=== PATIENT | female | born 1965 | race Caucasian/White ===

== ENCOUNTER 2022-03-31 11:09 | Inpatient (IN) ==
[2022-03-31] MEDS ORDERED: SODIUM CHLORIDE 0.9% 1000ML 1,000 ML IV ONE (11:19)
[2022-03-31] MEDS ORDERED: ONDANSETRON INJ 2 MG/ML 2 ML VIAL IV STA (11:19)
--- NOTE | 2022-03-31 11:32 | Emergency Department Note ---
History of Present Illness General Chief Complaint: Abdominal Pain Stated Complaint: GAS BUBBLE, ABDOMINAL PAIN Time Seen by Provider: 03/31/22 11:19 History of Present Illness Provider Complaint: abdominal pain Onset (ago): 3 week(s) Pain Consistency: intermittent Location: diffuse Radiation: none Severity: moderate Maximum Pain Intensity: 4 Current Pain Intensity: 4 Quality: + stabbing, + aching, + sharp and + dull Relieved By: + nothing Exacerbated By: + nothing Context: no foreign travel, no possible food poisoning, no sick contacts, no recent antibiotic use, no recent surgery/procedure or no recent injury Associated Symptoms: + nausea, + vomiting and + constipation; no diarrhea, no fever, no chills, no dysuria, no hematemesis, no hematochezia, no melena, no hematuria, no anorexia, no syncope, no headache, no neck pain, no back pain, no chest pain, no weakness, no breathing difficulty and no numbness Home Medications Medication Instructions Recorded Confirmed Type losartan 100 mg tablet 100 mg PO DAILY 03/31/22 03/31/22 History Allergies Allergy/AdvReac Type Severity Reaction Status Date / Time No Known Allergies Allergy Verified 03/31/22 12:57 Past Med/Surg History Medical History (Updated 03/31/22 @ 18:06 by López Freire) Colon cancer 2018 - chemo - last dose about a year ago GERD (gastroesophageal reflux disease) Morbid obesity Surgical History History of colostomy History of colostomy reversal History of vascular access device has port for chemo Hx of section Hx of colonoscopy Hx of lumbar discectomy Hx of tubal ligation Social History Smoking Status: Former smoker Second Hand Exposure: No; Hx Alcohol Use: No Preferred Language: Serbian Communication Ability: Effective Tracer Clerk Required: No Beliefs That Will Affect Care: None Current Living Situation: Spouse Feels Safe at Home: Yes Assistive Devices: Glasses Review of Systems A total of 10 systems reviewed and were otherwise negative Physical Exam Vital Signs: Vital Signs - 24 hr 03/31/22 11:14 03/31/22 11:58 03/31/22 12:18 Temperature 36.0 C L Temperature Source Temporal Artery Sc an Pulse Rate 118 H 112 H 85 Pulse Rate [Apical ] 104 H Pulse Rate from Sp O2 Sensor 86 Respiratory Rate 20 19 17 Respiratory Effort / Characteristics Non-Labored Sponta neous Respiratory Depth Normal Blood Pressure 166/80 H Blood Pressure [Ri ght Arm] 130/82 Blood Pressure Justa n 108 Blood Pressure Justa n [Right Arm] 98 Pulse Oximetry 97 97 96 Oxygen Delivery Me thod Room Air Room Air Sepsis Recent Feve r Within 48 Hours No Sepsis New/Unexpla ined Change in Men aviva Status N/A Sepsis Action Take n by Nursing No Action Required 03/31/22 12:30 Temperature Temperature Source Pulse Rate 85 Pulse Rate [Apical ] Pulse Rate from Sp O2 Sensor 86 Respiratory Rate 15 Respiratory Effort / Characteristics Respiratory Depth Blood Pressure Blood Pressure [Ri ght Arm] Blood Pressure Justa n Blood Pressure Justa n [Right Arm] Pulse Oximetry 98 Oxygen Delivery Me thod Sepsis Recent Feve r Within 48 Hours Sepsis New/Unexpla ined Change in Men aviva Status Sepsis Action Take n by Nursing Physical Exam: Physical Exam GENERAL: She is oriented to person, place, and time. She appears well-developed and well-nourished. She does not appear distressed. HENT: Exam performed. -Head: Normocephalic and atraumatic. -Right Ear: External ear normal. No mastoid tenderness. -Left Ear: External ear normal. No mastoid tenderness. -Mouth/Throat: The oropharynx is clear and moist. No trismus in the jaw. No dental abscesses or uvula swelling. No oropharyngeal exudate or tonsillar abscesses. EYES: Conjunctivae and EOM are normal. Pupils are equal, round, and reactive to light. Right eye exhibits no discharge. Left eye exhibits no discharge. No scleral icterus. NECK: Normal range of motion. Neck supple. No JVD present. No spinous process tenderness present. No carotid bruit present. No rigidity. No tracheal deviation and normal range of motion present. No Brudzinski's sign and no Kernig's sign noted. CV: Normal rate, regular rhythm, normal heart sounds and intact distal pulses. There is no peripheral edema. Palpable radial pulses bue. PULM/CHEST: Effort normal and breath sounds normal. No respiratory distress. No stridor. She has no wheezes. She has no rales. -Chest Wall: She exhibits no tenderness. ABD: The abdomen is soft. Bowel sounds are normal. She has no distension. No mass is present. There is diffuse tenderness to palpation of the abdomen. There is no rebound, no guarding, no Valadez's sign and no tenderness at McBurney's point. Rovsig negative MUSC/SKEL: Normal range of motion. There is no peripheral edema, tenderness or deformity. LYMPH: No cervical adenopathy. NEURO: She is alert and oriented to person, place, and time. She has normal strength. No cranial nerve deficit or sensory deficit. Coordination and gait normal. GCS eye subscore is 4. GCS verbal subscore is 5. GCS motor subscore is 6 . Cerebellar tests wnl. SKIN: Skin is warm and dry. She is not diaphoretic. PSYCH: She has a normal mood and affect. Behavior is normal. Judgment and thought content normal. Course Course 1119: The patient was evaluated in room B8. A complete history and physical exam was performed Cardiac monitoring: An order was placed for continuous cardiac monitoring. The monitor shows a rate of 110 with sinus tachycardia rhythm 1455: Vital signs stable. Labs show leukocytosis of 15.6. Imaging shows small bowel obstruction. Discussed the case with Rin Jain PA-C for Dr. Yeison aguirre who agrees to be on consult. Patient will be admitted to the [facility] hospitalist team spoke with Angie who stated to admit to Dr. Lopez. 1504: Dr. Latham general carla came down evaluated the patient recommends transfer as he states that the obstruction is due to a malignant neoplasm and is seems to him like there is metastasis in the eating her actual bowel. He recommends transfer to [facility] where the patient has had her other surgeries done in the past. 1650: Spoke with [facility] colorectal Dr. Guerrero who states that the patient can be transferred under his service. Transfer center at however states that there is a 24 to 48-hour wait to get a bed at [facility] as they are at maximum capacity. We did decide to keep the patient at this facility until a bed becomes available at [place]. I did discuss this with Dr. Latham general surgery who did agree to be on consult while the patient was admitted at this facility but stated he would not plan on operate on the patient. Hospitalist team Dr. Clemons and Angie were notified. Patient was made aware and agreed with plan. Administered Medications Discontinued Medications Sodium Chloride (Nss 1000ml) 1,000 mls @ 999 mls/hr IV .Q1H1M ONE Stop: 03/31/22 12:19 Last Infusion: 03/31/22 12:57 Dose: 0 mls/hr Documented by: [id number] Admin: 03/31/22 11:56 Dose: 999 mls/hr Documented by: [id number] Ioversol (Optiray 320 100ml) 95 ml IV ONCE ONE Stop: 03/31/22 14:04 Last Admin: 03/31/22 14:03 Dose: 95 ml Documented by: [id number] Ondansetron HCl (Ondansetron Inj 2 Mg/Ml 2 Ml Vial) 4 mg IV NOW STA Stop: 03/31/22 11:20 Last Admin: 03/31/22 11:57 Dose: 4 mg Documented by: [id number] Medical Decision Making Laboratory Data Result diagrams: 03/31/22 12:01 03/31/22 12:01 Lab Results 03/31/22 03/31/22 03/31/22 Range/Units 12:01 12:01 14:25 WBC 15.61 H (4.8-10.8) K/uL RBC 4.87 (4.2-5.4) M/uL Hgb 14.6 (12.0-16.0) g/dL Hct 43.9 (37-47) % MCV 90.1 (80-100) fL MCH 30.0 (25-34) pg MCHC 33.3 (32-36) g/dL RDW Std Deviation 42.5 (36.4-46.3) fL RDW Coeff of Hamida 12.8 (11.5-14.5) % Plt Count 256 (130-400) K/uL MPV 10.9 H (7.4-10.4) fL Immature Gran % (Auto) 0.3 % Neut % (Auto) 70.8 % Lymph % (Auto) 21.7 % [place] % (Auto) 5.2 % Eos % (Auto) 1.7 % Baso % (Auto) 0.3 % Neut # (Auto) 11.06 H (1.4-6.5) K/uL Lymph # (Auto) 3.39 (1.2-3.4) K/uL [place] # (Auto) 0.81 H (0.11-0.59) K/uL Eos # (Auto) 0.26 (0-0.5) K/uL Baso # (Auto) 0.04 (0-0.2) K/uL Immature Gran # (Auto) 0.05 H (0.00-0.02) K/uL Sodium 138 (136-145) mmol/L Potassium 3.5 (3.5-5.1) mmol/L Chloride 102 (98-107) mmol/L Carbon Dioxide 29 (21-32) mmol/L Anion Gap 7 (3-11) BUN 9 (6-23) mg/dl Creatinine 1.10 (0.6-1.2) mg/dl Est Cr Clr Drug Dosing 65.8 ml/min Est GFR ( Amer) 64.5 ml/min Est GFR (Non-Af Amer) 55.7 ml/min BUN/Creatinine Ratio 8.2 L (10-20) Glucose 105 H (70-99(Fasting)) mg/dl Calcium 9.3 (8.5-10.1) mg/dl Total Bilirubin 0.6 (0.2-1.0) mg/dl Direct Bilirubin 0.1 (0-0.2) mg/dl AST 22 (13-39) U/L ALT 22 (7-52) U/L Alkaline Phosphatase 110 H (34-104) U/L Total Protein 7.7 (6.0-8.3) gm/dl Albumin 4.2 (3.4-5.0) gm/dl Lipase 4 L (11-82) U/L Urine Color Dark Yellow Urine Appearance Clear (Clear) Urine pH 6.0 (4.5-7.5) Ur Specific [place] 1.034 H (1.000-1.030) Urine Protein Trace H (Negative) Urine Glucose (UA) Negative (Negative) Urine Ketones Trace H (Negative) Urine Blood Negative (Negative) Urine Nitrite Negative (Negative) Urine Bilirubin 1+ H (Negative) Urine Urobilinogen Negative (Negative) Ur Leukocyte Esterase Negative (Negative) Urine WBC (Auto) 1-5 (0-5) /hpf Urine RBC (Auto) 0-4 (0-4) /hpf U Hyaline Cast (Auto) 1-5 (0-5) /lpf U Epithel Cells (Auto) >30 H (0-5) /lpf Urine Bacteria (Auto) 1+ H (Negative) SARS-CoV-2, RNA, NAAT (NEGATIVE) 03/31/22 Range/Units 15:20 WBC (4.8-10.8) K/uL RBC (4.2-5.4) M/uL Hgb (12.0-16.0) g/dL Hct (37-47) % MCV (80-100) fL MCH (25-34) pg MCHC (32-36) g/dL RDW Std Deviation (36.4-46.3) fL RDW Coeff of Hamida (11.5-14.5) % Plt Count (130-400) K/uL MPV (7.4-10.4) fL Immature Gran % (Auto) % Neut % (Auto) % Lymph % (Auto) % [place] % (Auto) % Eos % (Auto) % Baso % (Auto) % Neut # (Auto) (1.4-6.5) K/uL Lymph # (Auto) (1.2-3.4) K/uL [place] # (Auto) (0.11-0.59) K/uL Eos # (Auto) (0-0.5) K/uL Baso # (Auto) (0-0.2) K/uL Immature Gran # (Auto) (0.00-0.02) K/uL Sodium (136-145) mmol/L Potassium (3.5-5.1) mmol/L Chloride (98-107) mmol/L Carbon Dioxide (21-32) mmol/L Anion Gap (3-11) BUN (6-23) mg/dl Creatinine (0.6-1.2) mg/dl Est Cr Clr Drug Dosing ml/min Est GFR ( Amer) ml/min Est GFR (Non-Af Amer) ml/min BUN/Creatinine Ratio (10-20) Glucose (70-99(Fasting)) mg/dl Calcium (8.5-10.1) mg/dl Total Bilirubin (0.2-1.0) mg/dl Direct Bilirubin (0-0.2) mg/dl AST (13-39) U/L ALT (7-52) U/L Alkaline Phosphatase (34-104) U/L Total Protein (6.0-8.3) gm/dl Albumin (3.4-5.0) gm/dl Lipase (11-82) U/L Urine Color Urine Appearance (Clear) Urine pH (4.5-7.5) Ur Specific [place] (1.000-1.030) Urine Protein (Negative) Urine Glucose (UA) (Negative) Urine Ketones (Negative) Urine Blood (Negative) Urine Nitrite (Negative) Urine Bilirubin (Negative) Urine Urobilinogen (Negative) Ur Leukocyte Esterase (Negative) Urine WBC (Auto) (0-5) /hpf Urine RBC (Auto) (0-4) /hpf U Hyaline Cast (Auto) (0-5) /lpf U Epithel Cells (Auto) (0-5) /lpf Urine Bacteria (Auto) (Negative) SARS-CoV-2, RNA, NAAT NEGATIVE (NEGATIVE) Imaging Data Radiologist's Impression: Abdomen/Pelvis CT 03/31/22 11:28 CT OF THE ABDOMEN AND PELVIS WITH CONTRAST CLINICAL HISTORY: Abdominal pain, nausea and vomiting. Colon cancer. Evaluate for small bowel obstruction. COMPARISON STUDY: PET/CT April 19, 2019. TECHNIQUE: Following IV administration of 95 mL of Optiray, axial images of the abdomen and pelvis were obtained from the lung bases to the proximal femurs. Images were reviewed in the axial, sagittal, and coronal planes. IV contrast was administered without complication. Automated exposure control was utilized for the study. A dose lowering technique was utilized adhering to the principles of ALARA. CT DOSE: 1155.74 mGy.cm FINDINGS: Lung bases are unremarkable. No pneumatosis, free air or portal venous gas is present. There are no hepatic lesions. There is hepatic steatosis. Spleen and adrenal glands are unremarkable. 4 mm calculus within the lower pole the left kidney is present. There are no ureteral calculi. There is no hydronephrosis. A sigmoid resection is noted. Colonic diverticulosis is noted without evidence for acute diverticulitis. Multiple loops of moderately dilated fluid-filled small bowel are noted. These measure up to 4.6 cm in caliber. The proximal to mid small bowel is dilated. Distal small bowel is decompressed. Transition point is at a retroperitoneal pathologic partially calcified lymph node that measures 5 x 3 x 2.5 cm. This is shown on axial image 200 [id number]. This node has increased in size since PET/CT of April 19, 2019. This lymph node result s in a small bowel obstruction. This node abuts and could invade the serosa of the small bowel. This appears to represent conglomerate lymphadenopathy which now abuts the abdominal aorta and aortic bifurcation. A few tiny calcifications within the right upper quadrant omentum are noted. These are indeterminate. These were not present on prior PET/CT. There are suspected left hydrosalpinx, unchanged. Suspected fibroids are noted. Postoperative findings of intra- abdominal wall are present. There is trace ascites within the right upper quadrant. IMPRESSION: 1. Findings consistent with a small bowel obstruction due to a pathologic retroperitoneal/paraaortic lymph node which has increased in size since PET/CT of April 19, 2019. This node abuts and may invade the serosa of the small bowel a nd results in a small bowel obstruction. This represents progression of metastatic disease. 2. A few tiny indeterminate peritoneal/omental calcifications. Trace ascites within the right upper quadrant. ACT 112: Negative or not required by law. Electronically signed by: Nir Gonzales M.D. 03/31/2022 2:27 PM [facility] Narrative 1119: The patient was evaluated in room B8. A complete history and physical exam was performed Cardiac monitoring: An order was placed for continuous cardiac monitoring. The monitor shows a rate of 110 with sinus tachycardia rhythm 1455: Vital signs stable. Labs show leukocytosis of 15.6. Imaging shows small bowel obstruction. Discussed the case with Rin Jain PA-C for Dr. Yeison aguirre who agrees to be on consult. [facility] who stated to admit to Dr. Lopez. 1504: Dr. Yeison aguirre came down evaluated the patient recommends transfer as he states that the obstruction is due to a malignant neoplasm and is seems to him like there is metastasis in the eating her actual bowel. He recommends transfer to [facility] where the patient has had her other surgeries done in the past. 1650: Spoke with [facility] colorectal Dr. Guerrero who states that the patient can be transferred under his service. Transfer center at however states that there is a 24 to 48-hour wait to get a bed at [facility] as they are at maximum capacity. We did decide to keep the patient at this facility until a bed becomes available at [place]. I did discuss this with Dr. Yeison aguirre who did agree to be on consult while the patient was admitted at this facility but stated he would not plan on operate on the patient. Hospitalist team Dr. Clemons and Angie were notified. Patient was made aware and agreed with plan. Impression & Plan Small bowel obstruction, Local recurrence of colon cancer Discharge Plan Visit Data Chief Complaint: Abdominal Pain Stated Complaint: GAS BUBBLE, ABDOMINAL PAIN ED Provider: López Freire Discharge Problem: Small bowel obstruction, Local recurrence of colon cancer Patient Disposition: Admitted As Inpatient Forms Stand Alone Forms: [facility] Prescriptions Prescriptions: No Action losartan 100 mg tablet 100 mg PO DAILY RF: 0 Referrals Referrals: Marce Holder DO [Primary Care Provider] -
[2022-03-31 12:22] LABS: Basophils # (auto) 0.04 K/uL (0-0.2); Basophils % (auto) 0.3 %; Eosinophils # (auto) 0.26 K/uL (0-0.5); Eosinophils % (auto) 1.7 %; Hematocrit (blood only) 43.9 % (37-47); Hemoglobin 14.6 g/dL (12.0-16.0); Immature Granulocytes # (auto) 0.05 K/uL (0.00-0.02); Immature Granulocytes % (auto) 0.3 %; Lymphocytes # (auto) 3.39 K/uL (1.2-3.4); Lymphocytes % (auto) 21.7 %; Mean Corpuscular Hgb Conc 33.3 g/dL (32-36); Mean Corpuscular Volume 90.1 fL (80-100); Mean Platelet Volume 10.9 fL (7.4-10.4); Monocytes # (auto) 0.81 K/uL (0.11-0.59); Monocytes % (auto) 5.2 %; Neutrophils # (auto) 11.06 K/uL (1.4-6.5); Neutrophils % (auto) 70.8 %; Platelet Count 256 K/uL (130-400); RDW Coefficient of Variation 12.8 % (11.5-14.5); RDW Standard Deviation 42.5 fL (36.4-46.3); Red Blood Count 4.87 M/uL (4.2-5.4); White Blood Count 15.61 K/uL (4.8-10.8)
[2022-03-31 13:21] LABS: Albumin Level 4.2 gm/dl (3.4-5.0); BUN Creatinine Ratio 8.2 (10-20); Bilirubin,Total 0.6 mg/dl (0.2-1.0); Calcium 9.3 mg/dl (8.5-10.1); Creatinine Clr Calc Pharmacy 65.8 ml/min; Est GFR (African American) 64.5 ml/min; Est GFR (Non-African American) 55.7 ml/min; Total Protein 7.7 gm/dl (6.0-8.3)
[2022-03-31 13:53] LABS: Bilirubin Direct 0.1 mg/dl (0-0.2); Potassium 3.5 mmol/L (3.5-5.1)
[2022-03-31] MEDS ORDERED: OPTIRAY 320 100ml IV ONE (14:03)
--- NOTE | 2022-03-31 14:29 | CT Scan Report ---
CT OF THE ABDOMEN AND PELVIS WITH CONTRAST CLINICAL HISTORY: Abdominal pain, nausea and vomiting. Colon cancer. Evaluate for small bowel obstruc tion. COMPARISON STUDY: PET/CT April 19, 2019. TECHNIQUE: Following IV administration of 95 mL of Optiray, axial images of the abdomen and pelvis we re obtained from the lung bases to the proximal femurs. Images were reviewed in the axial, sagittal, and coronal planes. IV contrast was administered without complication. Automated exposure control wa s utilized for the study. A dose lowering technique was utilized adhering to the principles of ALARA . CT DOSE: 1155.74 mGy.cm FINDINGS: Lung bases are unremarkable. No pneumatosis, free air or portal venous gas is present. Ther e are no hepatic lesions. There is hepatic steatosis. Spleen and adrenal glands are unremarkable. 4 m m calculus within the lower pole the left kidney is present. There are no ureteral calculi. There is no hydronephrosis. A sigmoid resection is noted. Colonic diverticulosis is noted without evidence for acute diverticulitis. Multiple loops of moderately dilated fluid-filled small bowel are noted. These measure up to 4.6 cm in caliber. The proximal to mid small bowel is dilated. Distal small bowel is d ecompressed. Transition point is at a retroperitoneal pathologic partially calcified lymph node that measures 5 x 3 x 2.5 cm. This is shown on axial image [id number]. This node has increased in size since PET/CT of April 19, 2019. This lymph node results in a small bowel obstruction. This node abuts and c ould invade the serosa of the small bowel. This appears to represent conglomerate lymphadenopathy whi ch now abuts the abdominal aorta and aortic bifurcation. A few tiny calcifications within the right u pper quadrant omentum are noted. These are indeterminate. These were not present on prior PET/CT. The re are suspected left hydrosalpinx, unchanged. Suspected fibroids are noted. Postoperative findings o f intra-abdominal wall are present. There is trace ascites within the right upper quadrant. IMPRESSION: 1. Findings consistent with a small bowel obstruction due to a pathologic retroperitoneal/paraaortic lymph node which has increased in size since PET/CT of April 19, 2019. This node abuts and may invade the serosa of the small bowel and results in a small bowel obstruction. This represents progression o f metastatic disease. 2. A few tiny indeterminate peritoneal/omental calcifications. Trace ascites within the right upper q uadrant. ACT 112: Negative or not required by law. Electronically signed by: Nir Gonzales M.D. 03/31/2022 2:27 PM
[2022-03-31 14:50] LABS: Appearance Urine Clear (Clear); Bacteria Urine Automated 1+ (Negative); Blood Urine Negative (Negative); Color Urine Dark Yellow; Epithelial Cell Urine Auto >30 /lpf (0-5); Glucose Urine UA Negative (Negative); Ketones Urine Trace (Negative); Leukocyte Esterase Urine Negative (Negative); Nitrite Urine Negative (Negative); Protein Urine Trace (Negative); RBC Urine Automated 0-4 /hpf (0-4); Specific Gravity Urine 1.034 (1.000-1.030); Urobilinogen Urine Negative (Negative)
[2022-03-31 14:54] LABS: Bilirubin Urine 1+ (Negative)
--- NOTE | 2022-03-31 15:02 | History & Physical Report ---
Date of Service March 31, 2022 Assessment & Plan (1) Small bowel obstruction: (2) Carcinoma of sigmoid colon: Plan: 57-year-old female with PMHx of colon cancer with mets originally diagnosed in August 2016, s/p sigmoid colon resection in September 2016 revealing thiago nocarcinoma, 8/16 lymph nodes were positive for metastatic carcinoma, the tumor penetrated through the visceral peritoneum and the final pathologic stage was [id number]. Complete staging revealed several pulmonary nodules, multiple prominent retroperitoneal lymph nodes and a left common iliac lymph node. Bone scan was negative in October 2016 for metastatic disease. Patient was seen by Dr. Allie Unger and then Dr. Bermudez from medical oncology and received 12 cycles of FOLFOX from 07/22/2018 to completing therapy on 05/20/2019. In October 2018 Vectibix was added. Restaging scans on 06/09/2017 showed stable nonspecific pulmonary nodules in the lung no other evidence of recurrent or metastatic disease. She had been followed by radiation oncology after PET/CT scan on 04/19/2019 revealed resolution of FDG avidity of retroperitoneal lymph node, she completed radiation therapy on 08/03/2019. Past abdominal surgical hx includes 4 abdominal surgeries: , ligation oviducts - unknown date 09/01/2016 with exploratory laparotomy of the abdomen due to diverticulosis, enterostomy creation 12/10/2017 with closure of enterostomy with large intestine resection and anastomosis 05/27/2021 mesh implant with abdominal hernia repair - Admit to med surg with tele - CT abdomen reviewed showin. Findings consistent with a small bowel obstruction due to a pathologic retroperitoneal/paraaortic lymph node which has increased in size since PET/CT of April 19, 2019. This node abuts and may invade the serosa of the small bowel and results in a small bowel obstruction. This represents progression of metastatic disease. 2. A few tiny indeterminate peritoneal/omental calcifications. Trace ascites within the right upper quadrant. - NGT being placed in the ER, strict NPO - NSS x 1 L at 80 ml/hr for maintenance fluids, afterwards can switch to D5+1/2 NSS if still admitted in this facility - WBC elevated at 15.61, neuts 11.06 - Alk phos is slightly elevated at 110 - Check cbc, cmp, mag, phos, INR with am labs - Consult oncology if still admitted here tomorrow, follows with Dr. Jaimes as an outpatient - Consulted general surgery - Dr. Latham - Anticipating transfer to [facility] soon for possible surgical intervention- pt has been accepted there however there aren't any beds available at this point (3) Morbid obesity: Plan: - BMI of 38.8, diet and exercise to be encouraged (4) GERD (gastroesophageal reflux disease): Plan: - Taking peptobismol at home, stopped using famotidine and protonix many months ago as she didn't see any improvement in her symptoms. DVT ppx: - teds, scds, lovenox subq - will need to hold tomorrow morning if plans for surgical procedure develop overnight CODE: Full code Dispo: From home, likely to remain in the hospital x 1-2 days. Awaiting bed at [facility] for transfer History of Present Illness Chief Complaint: Abdominal pain Primary Care Provider: Marce Holder, This is a 57-year-old female with PMHx of colon cancer with mets originally diagnosed in August 2016, s/p sigmoid colon resection in September 2016 revealing adenocarcinoma, 8/ lymph nodes were positive for metastatic carcinoma, the tumor penetrated through the visceral peritoneum and the final pathologic stage was [id number]. Complete staging revealed several pulmonary no dules, multiple prominent retroperitoneal lymph nodes and a left common iliac lymph node. Bone scan was negative in October 2016 for metastatic disease. Patient was seen by Dr. Allie Unger and then Dr. Bermudez from medical oncology and received 12 cycles of FOLFOX from 07/22/2018 to completing therapy on 05/20/2019. In October 2018 Vectibix was added. Restaging scans on 06/09/2017 showed stable nonspecific pulmonary nodules in the lung no other evidence of recurrent or metastatic disease. She had been followed by radiation oncology after PET/CT scan on 04/19/2019 revealed resolution of FDG avidity of retroperitoneal lymph node, she completed radiation therapy on 08/03/2019. She Past abdominal surgical hx includes 4 abdominal surgeries: , ligation oviducts - unknown date 09/01/2016 with exploratory laparotomy of the abdomen due to diverticulosis, enterostomy creation 12/10/2017 with closure of enterostomy with large intestine resection and anastomosis 05/27/2021 mesh implant with abdominal hernia repair Other past medical history includes: basal cell carcinoma L lower eyelid, rosacea, hx of tobacco use with 1 ppd x 20 years, quit in 2003. Today the patient presents with abdominal pain to the ER. 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 She notes that abdominal pain has been ongoing on and off x3 weeks. She is unable to pinpoint exact location of pain as she states that it moves throughout her abdomen, however currently feels it in the epigastric region above where mesh implant was placed last summer. Alleviating factors for her abdominal pain include movement and lying down, cannot pinpoint an aggravating factor. Intermittently,she has been unable to tolerate p.o. intake with nausea and vomiting, most recently was vomiting 2 days ago. She denies coffee-ground emesis or hematemesis and reports that the food is always partially digested. She has been using Pepto-Bismol multiple times daily and started a Gas-X tablet yesterday to help with bloating. Bowel movements are small, 3-5 times daily is a regular occurrence, her last bowel movement was 2 days ago, she is passing flatus today. Since having bowel surgery, her bowel habits have been unpredictable where she has several small bowel movements for days in a row and then has what she calls a " bowel clean out" without prompting it with any type of medication or enema. She does not take any stool softeners or other laxatives routinely. Patient is unable to tell me if she has been losing weight as she does not weigh herself daily. She denies any night sweats, fevers, chills or swelling of lymph nodes under her armpits or her groin that she is aware of. She lives at home with her who is aware that she is here. Only medication that the patient takes routinely is her losartan 100 mg daily. She is not on any pain medication that would possibly slow her bowels. [facility] was called for transfer from the ER, however due to no beds being available for the next 48 hours, we plan to admit the patient here. [facility] is agreeable to do a consultation. Allergies Allergy/AdvReac Type Severity Reaction Status Date / Time No Known Allergies Allergy Verified 03/31/22 12:57 Home Medications Medication Instructions Recorded Confirmed Type losartan 100 mg tablet 100 mg PO DAILY 03/31/22 03/31/22 History Past Med/Surg History Medical History (Updated 03/31/22 @ 18:06 by López Freire) Colon cancer 2018 - chemo - last dose about a year ago GERD (gastroesophageal reflux disease) Morbid obesity Surgical History History of colostomy History of colostomy reversal History of vascular access device has port for chemo Hx of section Hx of colonoscopy Hx of lumbar discectomy Hx of tubal ligation Social History Smoking Status: Former smoker Second Hand Exposure: No; Hx Alcohol Use: No Preferred Language: Gibraltarian Communication Ability: Effective Reel Slitter Required: No Beliefs That Will Affect Care: None Current Living Situation: Spouse Feels Safe at Home: Yes Assistive Devices: Glasses Review of Systems Review of Systems: Constitutional: No fever, sweats or chills Eyes: No diplopia, no worsening or blurred vision ENT: normal hearing, no trouble swallowing Respiratory: No cough, sputum, dyspnea at rest or on exertion Cardiovascular: No chest pain, tightness or palpitations Abdomen: As per HPI, currently minimal pain, no nausea, no vomiting, no diarrhea or constipation. Last BM 2 days ago, + flatus Musculoskeletal: No joint pain, calf pain, swelling Neurologic: No weakness, numbness/tingling, or balance problems Psychiatric: No anxiety or depression Skin: No rash or itch Physical Exam Physical Exam: General: awake, alert, no apparent distress, + obese with BMI of 38.8 Head: Normocephalic, atraumatic ENT: PERRL, EOMI, no pharyngeal exudate, mucous membranes slightly dry Chest: Clear to auscultation, on room air, no adventitious breath sounds Cardiac: Regular rate and rhythm, no murmur, no JVD, normal peripheral pulses, good capillary refill Abdominal: NABS x 4 quadrants, hyperactive, no tinkling, soft, + Distended, nontender to palpation, no rebound or guarding Extremities: Normal inspection, no peripheral edema or erythema, calfs nontender to palpation Psych: Normal mood and affect Neuro: AAO x 3, strength intact bilaterally and rated 5/5, no motor deficits, speech is clear, no peripheral sensory deficits Results & Data Results & Data ([facility]) Vital Signs (Past 12 Hours) Vital Signs Temp Pulse Pulse Resp BP BP Pulse Ox 03/31/22 12:30 85 15 98 03/31/22 12:18 85 17 96 03/31/22 11:58 112 H 104 H 19 130/82 97 03/31/22 11:14 36.0 C L 118 H 20 166/80 H 97 Laboratory Results 03/31/22 14:25 Urine Culture - Pending Urine,Clean Catch 03/31/22 03/31/22 03/31/22 15:20 14:25 12:01 WBC RBC Hgb Hct MCV MCH MCHC RDW Std Deviation RDW Coeff of Hamida Plt Count MPV Immature Gran % (Auto) Neut % (Auto) Lymph % (Auto) Allen % (Auto) Eos % (Auto) Baso % (Auto) Neut # (Auto) Lymph # (Auto) Allen # (Auto) Eos # (Auto) Baso # (Auto) Immature Gran # (Auto) Sodium 138 Potassium 3.5 Chloride 102 Carbon Dioxide 29 Anion Gap 7 BUN 9 Creatinine 1.10 Est Cr Clr Drug Dosing 65.8 Est GFR ( Amer) 64.5 Est GFR (Non-Af Amer) 55.7 BUN/Creatinine Ratio 8.2 L Glucose 105 H Calcium 9.3 Total Bilirubin 0.6 Direct Bilirubin 0.1 AST 22 ALT 22 Alkaline Phosphatase 110 H Total Protein 7.7 Albumin 4.2 Lipase 4 L Urine Color Dark Yellow Urine Appearance Clear Urine pH 6.0 Ur Specific [place] 1.034 H Urine Protein Trace H Urine Glucose (UA) Negative Urine Ketones Trace H Urine Blood Negative Urine Nitrite Negative Urine Bilirubin 1+ H Urine Urobilinogen Negative Ur Leukocyte Esterase Negative Urine WBC (Auto) 1-5 Urine RBC (Auto) 0-4 U Hyaline Cast (Auto) 1-5 U Epithel Cells (Auto) >30 H Urine Bacteria (Auto) 1+ H SARS-CoV-2, RNA, NAAT NEGATIVE 03/31/22 12:01 WBC 15.61 H RBC 4.87 Hgb 14.6 Hct 43.9 MCV 90.1 MCH 30.0 MCHC 33.3 RDW Std Deviation 42.5 RDW Coeff of [place] 12.8 Plt Count 256 MPV 10.9 H Immature Gran % (Auto) 0.3 Neut % (Auto) 70.8 Lymph % (Auto) 21.7 Allen % (Auto) 5.2 Eos % (Auto) 1.7 Baso % (Auto) 0.3 Neut # (Auto) 11.06 H Lymph # (Auto) 3.39 Allen # (Auto) 0.81 H Eos # (Auto) 0.26 Baso # (Auto) 0.04 Immature Gran # (Auto) 0.05 H Sodium Potassium Chloride Carbon Dioxide Anion Gap BUN Creatinine Est Cr Clr Drug Dosing Est GFR ( Amer) Est GFR (Non-Af Amer) BUN/Creatinine Ratio Glucose Calcium Total Bilirubin Direct Bilirubin AST ALT Alkaline Phosphatase Total Protein Albumin Lipase Urine Color Urine Appearance Urine pH Ur Specific [place] Urine Protein Urine Glucose (UA) Urine Ketones Urine Blood Urine Nitrite Urine Bilirubin Urine Urobilinogen Ur Leukocyte Esterase Urine WBC (Auto) Urine RBC (Auto) U Hyaline Cast (Auto) U Epithel Cells (Auto) Urine Bacteria (Auto) SARS-CoV-2, RNA, NAAT Diagnostic Findings Abdomen/Pelvis CT 03/31/22 11:28 CT OF THE ABDOMEN AND PELVIS WITH CONTRAST CLINICAL HISTORY: Abdominal pain, nausea and vomiting. Colon cancer. Evaluate for small bowel obstruction. COMPARISON STUDY: PET/CT April 19, 2019. TECHNIQUE: Following IV administration of 95 mL of Optiray, axial images of the abdomen and pelvis were obtained from the lung bases to the proximal femurs. Images were reviewed in the axial, sagittal, and coronal planes. IV contrast was administered without complication. Automated exposure control was utilized for the study. A dose lowering technique was utilized adhering to the principles of ALARA. CT DOSE: 1155.74 mGy.cm FINDINGS: Lung bases are unremarkable. No pneumatosis, free air or portal venous gas is present. There are no hepatic lesions. There is hepatic steatosis. Spleen and adrenal glands are unremarkable. 4 mm calculus within the lower pole the left kidney is present. There are no ureteral calculi. There is no hydronephrosis. A sigmoid resection is noted. Colonic diverticulosis is noted without evidence for acute diverticulitis. Multiple loops of moderately dilated fluid-filled small bowel are noted. These measure up to 4.6 cm in caliber. The proximal to mid small bowel is dilated. Distal small bowel is decompressed. Transition point is at a retroperitoneal pathologic partially calcified lymph node that measures 5 x 3 x 2.5 cm. This is shown on axial image 200 2355. This node has increased in size since PET/CT of April 19, 2019. This lymph node results in a small bowel obstruction. This node abuts and could invade the serosa of the small bowel. This appears to represent conglomerate lymphadenopathy which now abuts the abdominal aorta and aortic bifurcation. A few tiny calcifications within the right upper quadrant omentum are noted. These are indeterminate. These were not present on prior PET/CT. There are suspected left hydrosalpinx, unchanged. Suspected fibroids are noted. Postoperative findings of intra-abdominal wall are present. There is trace ascites within the right upper quadrant. IMPRESSION: 1. Findings consistent with a small bowel obstruction due to a pathologic retroperitoneal/paraaortic lymph node which has increased in size since PET/CT of April 19, 2019. This node abuts and may invade the serosa of the small bowel and results in a small bowel obstruction. This represents progression of metastatic disease. 2. A few tiny indeterminate peritoneal/omental calcifications. Trace ascites within the right upper quadrant. ACT 112: Negative or not required by law. Electronically signed by: Nir Gonzales M.D. 03/31/2022 2:27 PM Code Status & VTE Plan Code Status Full code -discussed with the patient at bedside Supervising Physician Co-Signing Physician Notes Pt is a 57 y/o F with hx of metastatic Adenocarcinoma of the colon s/p resection & chemoradiation, hx of bowel perforation and multiple abd surgeries, anemia, GERD, HTN admitted for SBO with increase in size of the retroperitoneal/paraaortic lymph nodes. PE: NG tube in place, well developed Lungs: CTA, no wheezing or crackles Cardiac: normal S1/S2, no murmur Abd: ND, soft, increase BS diffusely, mild discomfort to palpation diffusely Psych: normal affect A/P: SBO with increase in size of the retroperitoneal/paraaortic lymph nodes: -s/p NG tube -VSS - NPO: due to NG tube placement will continue NS 80 cc/hr ---- will consider changing to D5 tomorrow -surgery consulted: recommended transfer to [facility] ---- waiting for bed -pt has chronic elevate wbc - will hold losartan Other chronic conditions: plan as above Agree with a/p by Alla Cormier PA-C
[2022-03-31] MEDS ORDERED: ACETAMINOPHEN 325 MG TAB PO PRN (19:19)
[2022-03-31] MEDS ORDERED: SODIUM CHLORIDE 0.9% 500 ML IV SCH (19:19)
[2022-03-31] MEDS ORDERED: ONDANSETRON INJ 2 MG/ML 2 ML VIAL IV PRN (19:19)
[2022-03-31] MEDS ORDERED: diphenhydrAMINE 50 MG/ML VIAL IV ONE (22:35)
[2022-04-01 06:13] LABS: Basophils # (auto) 0.03 K/uL (0-0.2); Basophils % (auto) 0.3 %; Eosinophils # (auto) 0.32 K/uL (0-0.5); Eosinophils % (auto) 3.4 %; Hematocrit (blood only) 40.8 % (37-47); Hemoglobin 13.2 g/dL (12.0-16.0); Immature Granulocytes # (auto) 0.02 K/uL (0.00-0.02); Immature Granulocytes % (auto) 0.2 %; Lymphocytes # (auto) 2.92 K/uL (1.2-3.4); Lymphocytes % (auto) 31.3 %; Mean Corpuscular Hemoglobin 30.2 pg (25-34); Mean Corpuscular Hgb Conc 32.4 g/dL (32-36); Mean Corpuscular Volume 93.4 fL (80-100); Mean Platelet Volume 11.1 fL (7.4-10.4); Monocytes # (auto) 0.54 K/uL (0.11-0.59); Monocytes % (auto) 5.8 %; Platelet Count 214 K/uL (130-400); RDW Coefficient of Variation 13.1 % (11.5-14.5); RDW Standard Deviation 44.5 fL (36.4-46.3); Red Blood Count 4.37 M/uL (4.2-5.4); White Blood Count 9.33 K/uL (4.8-10.8)
[2022-04-01 06:22] LABS: Prothrombin Time 11.1 Seconds (9.0-12.0)
[2022-04-01 06:39] LABS: Albumin Globulin Ratio 1.3 (0.9-2); Albumin Level 3.6 gm/dl (3.4-5.0); BUN Creatinine Ratio 8.1 (10-20); Bilirubin Direct 0.2 mg/dl (0-0.2); Bilirubin,Total 0.5 mg/dl (0.2-1.0); Calcium 8.6 mg/dl (8.5-10.1); Creatinine Clr Calc Pharmacy 73.4 ml/min; Est GFR (African American) 73.3 ml/min; Est GFR (Non-African American) 63.3 ml/min; Globulin 2.8 gm/dl (2.5-4.0); Magnesium 1.9 mg/dl (1.7-2.4); Phosphorus 3.8 mg/dl (2.5-4.9); Potassium 3.2 mmol/L (3.5-5.1); Total Protein 6.4 gm/dl (6.0-8.3)
--- NOTE | 2022-04-01 10:03 | Surgery Consultation ---
Date of Consultation April 01, 2022 Assessment & Plan (1) Small bowel obstruction: (2) Carcinoma of sigmoid colon: 57 year-old female with history of metastatic colon cancer s/p sigmoid colon resection, colostomy with reversal, chemotherapy and radiation therapy and large midline incisional hernia repair with large mesh at [facility] about 1 year ago who presented to ED with increasing abdominal pain, nausea and vomiting. CT scan showing small bowel obstruction likely due to a pathological retro peritoneal/paraaortic lymph node which abuts and may invade the serosa of the small bowel resulting in the obstruction. Awaiting transfer to [facility], no beds currently available. Plan: Will plan to clamp NGT as patient is passing gas, no abdominal pain and minimal output continue NPO for bowel rest IV fluids pain management as needed Continue current medical mangement Dr. Latham has seen and examined pt, see addendum for further recommendations/plan. Supervising Physician Co-Signing Physician Notes I have seen and examined the patient and agree with the assessment and plan. In brief she has a history of metastatic colon cancer status post colon resection colostomy with reversal, chemoradiation, as well as a large hernia repair. She has small bowel obstruction. We have placed an NG tube. We have attempted transfer to [facility] where she had her other surgeries, however they do not have a bed available. We will admit her to the hospital and place her in observation. If she worsens or fails to improve she will need to be transferred to a tertiary care center for surgery. Continue to follow. History of Present Illness Reason for Consultation: SBO Requesting Physician: Angie Cormier PA-C Attending Physician: Aashish Gomes MD History of Present Illness 57-year-old female with PMHx of colon cancer with mets originally diagnosed in August 2016, s/p sigmoid colon resection in September 2016 revealing adenocarcinoma, 06/16 lymph nodes were positive for metastatic carcinoma, the tumor penetrated through the visceral peritoneum and the final pathologic stage was [id number]. Complete staging revealed several pulmonary nodules, multiple prominent retroperitoneal lymph nodes and a left common iliac lymph node. Bone scan was negative in October 2016 for metastatic disease. Patient was seen by Dr. Allie Unger and then Dr. Baldwin from medical oncology and received 12 cycl es of FOLFOX from 07/22/2018 to completing therapy on 05/20/2019. In October 2018 Vectibix was added. Restaging scans on 06/09/2017 showed stable nonspecific pulmonary nodules in the lung no other evidence of recurrent or metastatic disease. She had been followed by radiation oncology after PET/CT scan on 04/19/2019 revealed resolution of FDG avidity of retroperitoneal lymph node, she completed radiation therapy on 08/03/2019. She presented to ED yesterday due to increasing abdominal pain that became severe with associated nausea and vomiting. States the pain has been present for about 3 weeks but off and on prior to this. States last bowel movement was on Wednesday but is not regular with bowel movement everyday. Passing gas. She states she is feeling better, still passing gas. Uncomfortable with NGT. No abdominal pain. Awaiting bed at [facility] . Allergies Allergy/AdvReac Type Severity Reaction Status Date / Time No Known Allergies Allergy Verified 03/31/22 12:57 Home Medications Medication Instructions Recorded Confirmed Type losartan 100 mg tablet 100 mg PO DAILY 03/31/22 03/31/22 History Patient History Medical History (Updated 03/31/22 @ 18:06 by López Freire) Colon cancer 2018 - chemo - last dose about a year ago GERD (gastroesophageal reflux disease) Morbid obesity Surgical History History of colostomy History of colostomy reversal History of vascular access device has port for chemo Hx of section Hx of colonoscopy Hx of lumbar discectomy Hx of tubal ligation Social History Smoking Status: Former smoker Second Hand Exposure: No; Do You Dip or Chew Tobacco: No; Hx Alcohol Use: No Hx Substance Use: No Preferred Language: Prydeinig Communication Ability: Effective Manager Of Radiology Required: No Beliefs That Will Affect Care: None Current Living Situation: Spouse Current Living Situation Comment: home with Other Information That Helps Us Care for You: No Feels Safe at Home: Yes Safety Concerns: Feels Safe At This Time Assistive Devices: None Physical Exam Constitutional: WD/WN, vitals as above + obese; no acute distress and not ill appearing Neck: normal visual inspection and trachea midline Respiratory: normal respiratory effort, lungs clear to auscultation Cardiovascular: RRR, no murmur, no edema Gastrointestinal (Abdomen): Inspection/Auscultation: abdomen normal to inspection and + abdominal surgical scar (midline laparotomy scar and LLQ scar from prior colostomy); abdomen not distended Percussion/Palpation: abdomen soft; abdomen nontender, no guarding and abdomen not rigid NGT with minimal output in canister Skin: no rashes, warm and dry Psychiatric: A+Ox3, euthymic affect Results & Data ([facility]) Vital Signs (Past 12 Hours) Vital Signs Temp Pulse Pulse Pulse Resp BP Pulse Ox 04/01/22 07:55 36.5 C 85 18 113/74 93 04/01/22 07:30 75 04/01/22 03:16 37.1 C 79 18 123/74 93 03/31/22 23:00 85 03/31/22 22:49 37.0 C 72 18 119/74 93 Laboratory Results 04/01/22 04/01/22 04/01/22 Range/Units 05:29 05:29 05:29 WBC 9.33 (4.8-10.8) K/uL RBC 4.37 (4.2-5.4) M/uL Hgb 13.2 (12.0-16.0) g/dL Hct 40.8 (37-47) % MCV 93.4 (80-100) fL MCH 30.2 (25-34) pg MCHC 32.4 (32-36) g/dL RDW Std Deviation 44.5 (36.4-46.3) fL RDW Coeff of Hamida 13.1 (11.5-14.5) % Plt Count 214 (130-400) K/uL MPV 11.1 H (7.4-10.4) fL Immature Gran % (Auto) 0.2 % Neut % (Auto) 59.0 % Lymph % (Auto) 31.3 % Hemphill % (Auto) 5.8 % Eos % (Auto) 3.4 % Baso % (Auto) 0.3 % Neut # (Auto) 5.50 (1.4-6.5) K/uL Lymph # (Auto) 2.92 (1.2-3.4) K/uL Hemphill # (Auto) 0.54 (0.11-0.59) K/uL Eos # (Auto) 0.32 (0-0.5) K/uL Baso # (Auto) 0.03 (0-0.2) K/uL Immature Gran # (Auto) 0.02 (0.00-0.02) K/uL PT 11.1 (9.0-12.0) Seconds INR 1.0 (0.9-1.1) Sodium 141 (136-145) mmol/L Potassium 3.2 L (3.5-5.1) mmol/L Chloride 107 (98-107) mmol/L Carbon Dioxide 27 (21-32) mmol/L Anion Gap 7 (3-11) BUN 8 (6-23) mg/dl Creatinine 0.99 (0.6-1.2) mg/dl Est Cr Clr Drug Dosing 73.4 ml/min Est GFR ( Amer) 73.3 ml/min Est GFR (Non-Af Amer) 63.3 ml/min BUN/Creatinine Ratio 8.1 L (10-20) Glucose 87 (70-99(Fasting)) mg/dl Calcium 8.6 (8.5-10.1) mg/dl Phosphorus 3.8 (2.5-4.9) mg/dl Magnesium 1.9 (1.7-2.4) mg/dl Total Bilirubin 0.5 (0.2-1.0) mg/dl Direct Bilirubin 0.2 (0-0.2) mg/dl AST 18 (13-39) U/L ALT 18 (7-52) U/L Alkaline Phosphatase 93 (34-104) U/L Total Protein 6.4 (6.0-8.3) gm/dl Albumin 3.6 (3.4-5.0) gm/dl Globulin 2.8 (2.5-4.0) gm/dl Albumin/Globulin Ratio 1.3 (0.9-2) Lipase (11-82) U/L Urine Color Urine Appearance (Clear) Urine pH (4.5-7.5) Ur Specific [place] (1.000-1.030) Urine Protein (Negative) Urine Glucose (UA) (Negative) Urine Ketones (Negative) Urine Blood (Negative) Urine Nitrite (Negative) Urine Bilirubin (Negative) Urine Urobilinogen (Negative) Ur Leukocyte Esterase (Negative) Urine WBC (Auto) (0-5) /hpf Urine RBC (Auto) (0-4) /hpf U Hyaline Cast (Auto) (0-5) /lpf U Epithel Cells (Auto) (0-5) /lpf Urine Bacteria (Auto) (Negative) SARS-CoV-2, RNA, NAAT (NEGATIVE) 03/31/22 03/31/22 03/31/22 Range/Units 15:20 14:25 12:01 WBC (4.8-10.8) K/uL RBC (4.2-5.4) M/uL Hgb (12.0-16.0) g/dL Hct (37-47) % MCV (80-100) fL MCH (25-34) pg MCHC (32-36) g/dL RDW Std Deviation (36.4-46.3) fL RDW Coeff of Hamida (11.5-14.5) % Plt Count (130-400) K/uL MPV (7.4-10.4) fL Immature Gran % (Auto) % Neut % (Auto) % Lymph % (Auto) % Hemphill % (Auto) % Eos % (Auto) % Baso % (Auto) % Neut # (Auto) (1.4-6.5) K/uL Lymph # (Auto) (1.2-3.4) K/uL Hemphill # (Auto) (0.11-0.59) K/uL Eos # (Auto) (0-0.5) K/uL Baso # (Auto) (0-0.2) K/uL Immature Gran # (Auto) (0.00-0.02) K/uL PT (9.0-12.0) Seconds INR (0.9-1.1) Sodium 138 (136-145) mmol/L Potassium 3.5 (3.5-5.1) mmol/L Chloride 102 (98-107) mmol/L Carbon Dioxide 29 (21-32) mmol/L Anion Gap 7 (3-11) BUN 9 (6-23) mg/dl Creatinine 1.10 (0.6-1.2) mg/dl Est Cr Clr Drug Dosing 65.8 ml/min Est GFR ( Amer) 64.5 ml/min Est GFR (Non-Af Amer) 55.7 ml/min BUN/Creatinine Ratio 8.2 L (10-20) Glucose 105 H (70-99(Fasting)) mg/dl Calcium 9.3 (8.5-10.1) mg/dl Phosphorus (2.5-4.9) mg/dl Magnesium (1.7-2.4) mg/dl Total Bilirubin 0.6 (0.2-1.0) mg/dl Direct Bilirubin 0.1 (0-0.2) mg/dl AST 22 (13-39) U/L ALT 22 (7-52) U/L Alkaline Phosphatase 110 H (34-104) U/L Total Protein 7.7 (6.0-8.3) gm/dl Albumin 4.2 (3.4-5.0) gm/dl Globulin (2.5-4.0) gm/dl Albumin/Globulin Ratio (0.9-2) Lipase 4 L (11-82) U/L Urine Color Dark Yellow Urine Appearance Clear (Clear) Urine pH 6.0 (4.5-7.5) Ur Specific [place] 1.034 H (1.000-1.030) Urine Protein Trace H (Negative) Urine Glucose (UA) Negative (Negative) Urine Ketones Trace H (Negative) Urine Blood Negative (Negative) Urine Nitrite Negative (Negative) Urine Bilirubin 1+ H (Negative) Urine Urobilinogen Negative (Negative) Ur Leukocyte Esterase Negative (Negative) Urine WBC (Auto) 1-5 (0-5) /hpf Urine RBC (Auto) 0-4 (0-4) /hpf U Hyaline Cast (Auto) 1-5 (0-5) /lpf U Epithel Cells (Auto) >30 H (0-5) /lpf Urine Bacteria (Auto) 1+ H (Negative) SARS-CoV-2, RNA, NAAT NEGATIVE (NEGATIVE) 03/31/22 Range/Units 12:01 WBC 15.61 H (4.8-10.8) K/uL RBC 4.87 (4.2-5.4) M/uL Hgb 14.6 (12.0-16.0) g/dL Hct 43.9 (37-47) % MCV 90.1 (80-100) fL MCH 30.0 (25-34) pg MCHC 33.3 (32-36) g/dL RDW Std Deviation 42.5 (36.4-46.3) fL RDW Coeff of Hamida 12.8 (11.5-14.5) % Plt Count 256 (130-400) K/uL MPV 10.9 H (7.4-10.4) fL Immature Gran % (Auto) 0.3 % Neut % (Auto) 70.8 % Lymph % (Auto) 21.7 % Hemphill % (Auto) 5.2 % Eos % (Auto) 1.7 % Baso % (Auto) 0.3 % Neut # (Auto) 11.06 H (1.4-6.5) K/uL Lymph # (Auto) 3.39 (1.2-3.4) K/uL Hemphill # (Auto) 0.81 H (0.11-0.59) K/uL Eos # (Auto) 0.26 (0-0.5) K/uL Baso # (Auto) 0.04 (0-0.2) K/uL Immature Gran # (Auto) 0.05 H (0.00-0.02) K/uL PT (9.0-12.0) Seconds INR (0.9-1.1) Sodium (136-145) mmol/L Potassium (3.5-5.1) mmol/L Chloride (98-107) mmol/L Carbon Dioxide (21-32) mmol/L Anion Gap (3-11) BUN (6-23) mg/dl Creatinine (0.6-1.2) mg/dl Est Cr Clr Drug Dosing ml/min Est GFR ( Amer) ml/min Est GFR (Non-Af Amer) ml/min BUN/Creatinine Ratio (10-20) Glucose (70-99(Fasting)) mg/dl Calcium (8.5-10.1) mg/dl Phosphorus (2.5-4.9) mg/dl Magnesium (1.7-2.4) mg/dl Total Bilirubin (0.2-1.0) mg/dl Direct Bilirubin (0-0.2) mg/dl AST (13-39) U/L ALT (7-52) U/L Alkaline Phosphatase (34-104) U/L Total Protein (6.0-8.3) gm/dl Albumin (3.4-5.0) gm/dl Globulin (2.5-4.0) gm/dl Albumin/Globulin Ratio (0.9-2) Lipase (11-82) U/L Urine Color Urine Appearance (Clear) Urine pH (4.5-7.5) Ur Specific [place] (1.000-1.030) Urine Protein (Negative) Urine Glucose (UA) (Negative) Urine Ketones (Negative) Urine Blood (Negative) Urine Nitrite (Negative) Urine Bilirubin (Negative) Urine Urobilinogen (Negative) Ur Leukocyte Esterase (Negative) Urine WBC (Auto) (0-5) /hpf Urine RBC (Auto) (0-4) /hpf U Hyaline Cast (Auto) (0-5) /lpf U Epithel Cells (Auto) (0-5) /lpf Urine Bacteria (Auto) (Negative) SARS-CoV-2, RNA, NAAT (NEGATIVE) Diagnostic Findings CT OF THE ABDOMEN AND PELVIS WITH CONTRAST CLINICAL HISTORY: Abdominal pain, nausea and vomiting. Colon cancer. Evaluate for small bowel obstruction. COMPARISON STUDY: PET/CT April 19, 2019. TECHNIQUE: Following IV administration of 95 mL of Optiray, axial images of the abdomen and pelvis were obtained from the lung bases to the proximal femurs. Images were reviewed in the axial, sagittal, and coronal planes. IV contrast was administered without complication. Automated exposure control was utilized for the study. A dose lowering technique was utilized adhering to the principles of ALARA. CT DOSE: 1155.74 mGy.cm FINDINGS: Lung bases are unremarkable. No pneumatosis, free air or portal venous gas is present. There are no hepatic lesions. There is hepatic steatosis. Spleen and adrenal glands are unremarkable. 4 mm calculus within the lower pole the left kidney is present. There are no ureteral calculi. There is no hydronephrosis. A sigmoid resection is noted. Colonic diverticulosis is noted without evidence for acute diverticulitis. Multiple loops of moderately dilated fluid-filled small bowel are noted. These measure up to 4.6 cm in caliber. The proximal to mid small bowel is dilated. Distal small bowel is decompressed. Transition point is at a retroperitoneal pathologic partially calcified lymph node that measures 5 x 3 x 2.5 cm. This is shown on axial image [id number]. This node has increased in size since PET/CT of April 19, 2019. This lymph node results in a small bowel obstruction. This node abuts and could invade the serosa of the small bowel. This appears to represent conglomerate lymphadenopathy which now abuts the abdominal aorta and aortic bifurcation. A few tiny calcifications within the right upper quadrant omentum are noted. These are indeterminate. These were not present on prior PET/CT. There are suspected left hydrosalpinx, unchanged. Suspected fibroids are noted. Postoperative findings of intra-abdominal wall are present. There is trace ascites within the right upper quadrant. IMPRESSION: 1. Findings consistent with a small bowel obstruction due to a pathologic retroperitoneal/paraaortic lymph node which has increased in size since PET/CT of April 19, 2019. This node abuts and may invade the serosa of the small bowel and results in a small bowel obstruction. This represents progression of metastatic disease. 2. A few tiny indeterminate peritoneal/omental calcifications. Trace ascites wi thin the right upper quadrant.
[2022-04-01] MEDS: ENOXAPARIN INJ 40 MG/0.4 ML SYR SQ SCH (11:02)
[2022-04-01] MEDS: POTASSIUM CHLORIDE / WTR 10 MEQ/100 ML PLCT IV SCH ×4 (12:38→13:56)
[2022-04-01] MEDS: D5W AND 1/2NSS + 20MEQ KCL 20 MEQ/1,000 ML BAG IV SCH (12:38)
[2022-04-01] MEDS: cefTRIAXone SODIUM 2,000 MG in DEXTROSE 5% 50 ML IV SCH (12:38)
--- NOTE | 2022-04-01 15:15 | Hospitalist Progress Note ---
Date of Service April 01, 2022 Assessment & Plan (1) Small bowel obstruction: (2) Carcinoma of sigmoid colon: Plan: As per records: Patient is a 57 yr female with H/O Colon cancer with mets diagnosed in Aug 2016, S/P sigmoid colon resection in Sep 2016 revealing adenocarcinoma, 8/16 lymph nodes were positive for metastatic carcinoma, the tumor penetrated through the visceral peritoneum and the final pathologic stage was [id number]. Complete staging revealed several pulmonary nodules, multiple prominent retroperitoneal lymph nodes and a left common iliac lymph node. Bone scan was negative in October 2016 for metastatic disease. Patient was seen by Dr. Allie Unger and then Dr. Bermudez from medical oncology and received 12 cycles of FOLFOX from 07/22/2018 to completing therapy on 05/20/2019. In October 2018 Vectibix was added. Restaging scans on 06/09/2017 showed stable nonspecific pulmonary nodules in the lung no other evidence of recurrent or metastatic disease. She had been followed by radiation oncology after PET/CT scan on 04/19/2019 revealed resolu tion of FDG avidity of retroperitoneal lymph node, she completed radiation therapy on 08/03/2019. Small Bowel Obstruction H/O Abdominal surgeries: , ligation oviducts 09/01/2016 with exploratory laparotomy of the abdomen due to diverticulosis, enterostomy creation 12/10/2017 with closure of enterostomy with large intestine resection and anastomosis 05/27/2021 mesh implant with abdominal hernia repair --CT ABD:Findings consistent with a small bowel obstruction due to a pathologic retroperitoneal/paraaortic lymph node which has increased in size since PET/CT of April 19, 2019. This node abuts and may invade the serosa of the small bowel and results in a small bowel obstruction. This represents progression of metastatic disease. A few tiny indeterminate peritoneal/omental calcifications. Trace ascites within the right upper quadrant. --Continue NG tube, Bowel rest, IV fluids --Pain control --Appreciate Surgery Input -Plan to transfer to [facility] for possible surgical intervention when bed available (3) Morbid obesity: Plan: - BMI of 38.8 Diet and exercise encouraged Abnormal UA Rule out UTI Empirically started on Rocephin Urine Cx pending Hypokalemia Replace as needed (4) GERD (gastroesophageal reflux disease): Plan: - Uses peptobismol at home Quit taking famotidine and protonix many months ago (As not helping) DVT px: Teds, SCDs, Lovenox SQ CODE STATUS: Full code Admission and Anticipated Discharge Date Admission Date: March 31, 2022 Subjective Patient is seen and examined at bedside +Flatus, No BM Denies nausea, vomiting, abdominal pain, chest pain, dyspnea Offers no other complaints Waiting for rehab facility transfer Review of Systems Review of Systems: All systems reviewed & are unremarkable except as noted in Subjective Physical Exam Physical Exam: Physical Exam: Vitals signs as noted above General Appearance:Obese, no apparent distress Head: normocephalic, Atraumatic, +NG tube Eyes: normal inspection, EOMI Neck: supple, Trachea midline Respiratory/Chest: Normal breath sounds, CTA, No accessory muscle use Cardiovascular: S1, S2, No murmur Abdomen/GI:Soft, Non tender, Decreased bowel sounds, +Surgical scar Extremities/Musculoskeletal:normal inspection, no edema Neurologic/Psych:AAOX3, grossly no focal neurological deficits Skin: normal color, warm Results & Data Results & Data ([facility]) Vital Signs (Past 12 Hours) Vital Signs Temp Pulse Pulse Pulse Resp BP Pulse Ox 04/01/22 11:26 36.9 C 89 18 130/77 93 04/01/22 11:19 04/01/22 07:55 36.5 C 85 18 113/74 93 04/01/22 07:30 75 04/01/22 03:16 37.1 C 79 18 123/74 93 Pulse Ox 04/01/22 11:26 04/01/22 11:19 93 04/01/22 07:55 04/01/22 07:30 04/01/22 03:16 Laboratory Results Short CBC 04/01/22 Range/Units 05:29 WBC 9.33 (4.8-10.8) K/uL Hgb 13.2 (12.0-16.0) g/dL Hct 40.8 (37-47) % Plt Count 214 (130-400) K/uL BMP 04/01/22 05:29 Sodium 141 Potassium 3.2 L Chloride 107 Carbon Dioxide 27 BUN 8 Creatinine 0.99 Glucose 87 Calcium 8.6 Liver Function 04/01/22 Range/Units 05:29 Total Bilirubin 0.5 (0.2-1.0) mg/dl Direct Bilirubin 0.2 (0-0.2) mg/dl AST 18 (13-39) U/L ALT 18 (7-52) U/L Alkaline Phosphatase 93 (34-104) U/L Albumin 3.6 (3.4-5.0) gm/dl
[2022-04-02] MEDS: D5W AND 1/2NSS + 20MEQ KCL 20 MEQ/1,000 ML BAG IV SCH ×2 (02:00→17:31)
[2022-04-02 06:20] LABS: BUN Creatinine Ratio 9.4 (10-20); Calcium 8.5 mg/dl (8.5-10.1); Creatinine Clr Calc Pharmacy 85.3 ml/min; Est GFR (African American) 88.2 ml/min; Est GFR (Non-African American) 76.1 ml/min; Potassium 3.6 mmol/L (3.5-5.1)
[2022-04-02] MEDS: ENOXAPARIN INJ 40 MG/0.4 ML SYR SQ SCH (08:10)
[2022-04-02] MEDS: cefTRIAXone SODIUM 2,000 MG in DEXTROSE 5% 50 ML IV SCH (08:10)
--- NOTE | 2022-04-02 09:42 | Surgery Progress Note ---
Date of Service April 02, 2022 Assessment & Plan (1) Small bowel obstruction: (2) Carcinoma of sigmoid colon: Plan: 57 year-old female with history of metastatic colon cancer (2016) s/p sigmoid colon resection, colostomy with reversal, chemotherapy and radiation therapy and large midline incisional hernia repair with large mesh at [facility] about 1 year ago who presented to ED with increasing abdominal pain, nausea and vomiting. CT scan showing small bowel obstruction likely due to a pathological retroperitoneal/paraaortic lymph node which abuts and may invade the serosa of the small bowel resulting in the obstruction. Plan: Remove NGT Start clear liquids Encourage ambulation IV fluids until taking po well Continue current medical management If does well with diet advancement she could likely be discharged home and outpatient follow-up with her oncologist for further management of CT Scan findings and metastatic disease. Dr. Latham has seen and examined pt, agrees with above. Admission and Anticipated Discharge Date Admission Date: March 31, 2022 Supervising Physician Co-Signing Physician Notes I have seen and examined the patient agree with the above assessment and plan. Her NG tube has been clamped overnight and she denies any nausea or vomiting. She is not passing flatus. We will remove the NG tube and advance her diet. We will continue to follow. Subjective feeling okay no abdominal pain, nausea, vomiting, increased bloating with NGT being clamped still passing gas but no bowel movement yet Physical Exam Constitutional: well developed, well nourished and + obese; no acute distress and not ill appearing Neck: normal visual inspection and trachea midline Respiratory: normal respiratory effort; no respiratory distress Cardiovascular: RRR, no murmur, no edema Gastrointestinal (Abdomen): Inspection/Auscultation: abdomen normal to inspection, normal bowel sounds and + abdominal surgical scar (midline laparotomy scar, LLQ scar from prior ostomy); abdomen not distended Percussion/Palpation: abdomen soft; abdomen nontender, no guarding and abdomen not rigid Skin: no rashes, warm and dry Psychiatric: Orientation: alert and oriented x 3 Results & Data ([facility]) Vital Signs (Past 12 Hours) Vital Signs Temp Pulse Pulse Resp BP Pulse Ox 04/02/22 07:53 36.3 C L 79 20 130/72 92 04/02/22 07:22 93 H 04/02/22 03:07 37.0 C 95 H 18 138/84 93 04/02/22 00:18 83 04/01/22 23:01 36.7 C 90 18 134/82 95 Laboratory Results 04/02/22 Range/Units 05:42 Sodium 139 (136-145) mmol/L Potassium 3.6 (3.5-5.1) mmol/L Chloride 105 (98-107) mmol/L Carbon Dioxide 27 (21-32) mmol/L Anion Gap 7 (3-11) BUN 8 (6-23) mg/dl Creatinine 0.85 (0.6-1.2) mg/dl Est Cr Clr Drug Dosing 85.3 ml/min Est GFR ( Amer) 88.2 ml/min Est GFR (Non-Af Amer) 76.1 ml/min BUN/Creatinine Ratio 9.4 L (10-20) Glucose 103 H (70-99(Fasting)) mg/dl Calcium 8.5 (8.5-10.1) mg/dl
--- NOTE | 2022-04-02 17:58 | Hospitalist Progress Note ---
Date of Service April 02, 2022 Assessment & Plan (1) Small bowel obstruction: (2) Carcinoma of sigmoid colon: Plan: As per records: Patient is a 57 yr female with H/O Colon cancer with mets diagnosed in Aug 2016, S/P sigmoid colon resection in Sep 2016 revealing adenocarcinoma, 8/16 lymph nodes were positive for metastatic carcinoma, the tumor penetrated through the visceral peritoneum and the final pathologic stage was [id number]. Complete staging revealed several pulmonary nodules, multiple prominent retroperitoneal lymph nodes and a left common iliac lymph node. Bone scan was negative in October 2016 for metastatic disease. Patient was seen by Dr. Allie Unger and then Dr. Bermudez from medical oncology and received 12 cycles of FOLFOX from 07/22/2018 to completing therapy on 05/20/2019. In October 2018 Vectibix was added. Restaging scans on 06/09/2017 showed stable nonspecific pulmonary nodules in the lung no other evidence of recurrent or metastatic disease. She had been followed by radiation oncology after PET/CT scan on 04/19/2019 revealed resolu tion of FDG avidity of retroperitoneal lymph node, she completed radiation therapy on 08/03/2019. Small Bowel Obstruction H/O Abdominal surgeries: , ligation oviducts 09/01/2016 with exploratory laparotomy of the abdomen due to diverticulosis, enterostomy creation 12/10/2017 with closure of enterostomy with large intestine resection and anastomosis 05/27/2021 mesh implant with abdominal hernia repair --CT ABD:Findings consistent with a small bowel obstruction due to a pathologic retroperitoneal/paraaortic lymph node which has increased in size since PET/CT of April 19, 2019. This node abuts and may invade the serosa of the small bowel and results in a small bowel obstruction. This represents progression of metastatic disease. A few tiny indeterminate peritoneal/omental calcifications. Trace ascites within the right upper quadrant. --NG tube discontinued --Started on Liquid diet Continue gentle IV fluids --Pain control --Appreciate Surgery Input --Plan to transfer to [facility] for possible surgical intervention when bed available --Recheck KUB in AM --Encourage ambulation (3) Morbid obesity: Plan: - BMI of 38.8 Diet and exercise encouraged Abnormal UA Ruled out UTI Rocephin discontinued Urine Cx : Negative Hypokalemia Replace as needed (4) GERD (gastroesophageal reflux disease): Plan: - Uses peptobismol at home Quit taking famotidine and protonix many months ago (As not helping) DVT px: Lovenox SQ CODE STATUS: Full code Admission and Anticipated Discharge Date Admission Date: March 31, 2022 Subjective Patient is seen and examined at bedside States feeling better today Discussed with surgery today NG tube discontinued +Flatus, No BM yet Denies nausea, vomiting, abdominal pain, chest pain, dyspnea Tolerating diet Review of Systems Review of Systems: All systems reviewed & are unremarkable except as noted in Subjective Physical Exam Physical Exam: Physical Exam: Vitals signs as noted above General Appearance:Obese, no apparent distress Head: normocephalic, Atraumatic Eyes: normal inspection, EOMI Neck: supple, Trachea midline Respiratory/Chest: Normal breath sounds, CTA, No accessory muscle use Cardiovascular: S1, S2, No murmur Abdomen/GI:Soft, Non tender, bowel sounds present, +Surgical scar Extremities/Musculoskeletal:normal inspection, no edema Neurologic/Psych:AAOX3, grossly no focal neurological deficits Skin: normal color, warm Results & Data Results & Data ([facility]) Vital Signs (Past 12 Hours) Vital Signs Temp Pulse Pulse Resp BP Pulse Ox 04/02/22 16:09 88 04/02/22 11:31 36.9 C 89 18 156/92 H 98 04/02/22 07:53 36.3 C L 79 20 130/72 92 04/02/22 07:22 93 H Laboratory Results [facility] [place]/02/22 05:42 Sodium 139 Potassium 3.6 Chloride 105 Carbon Dioxide 27 BUN 8 Creatinine 0.85 Glucose 103 H Calcium 8.5
--- NOTE | 2022-04-02 22:46 | Communication Note ---
Date of Service: April 02, 2022 Made aware by RN of [facility] bed availability. Patient opts to stay at [facility] for now.
[2022-04-03 06:30] LABS: Hematocrit (blood only) 37.5 % (37-47); Hemoglobin 12.2 g/dL (12.0-16.0); Mean Corpuscular Hemoglobin 29.5 pg (25-34); Mean Corpuscular Hgb Conc 32.5 g/dL (32-36); Mean Corpuscular Volume 90.8 fL (80-100); Mean Platelet Volume 10.8 fL (7.4-10.4); Platelet Count 192 K/uL (130-400); RDW Coefficient of Variation 12.7 % (11.5-14.5); RDW Standard Deviation 42.6 fL (36.4-46.3); Red Blood Count 4.13 M/uL (4.2-5.4); White Blood Count 7.48 K/uL (4.8-10.8)
[2022-04-03 07:12] LABS: BUN Creatinine Ratio 7.9 (10-20); Calcium 8.4 mg/dl (8.5-10.1); Creatinine Clr Calc Pharmacy 95.6 ml/min; Est GFR (African American) 100.9 ml/min; Est GFR (Non-African American) 87.1 ml/min; Potassium 3.7 mmol/L (3.5-5.1)
--- NOTE | 2022-04-03 08:13 | XRay Report ---
KUB HISTORY: Acute generalized abdominal pain with possible obstruction small bowel obstruction COMPARISON: CT abdomen pelvis 03/31/2022 FINDINGS: There is decreased small bowel distention with a few dilated central small bowel loops rede monstrated measuring up to 3.7 cm which has improved from the prior study. There is moderate fecal re tention of the right hemicolon. Pelvic basin phleboliths. No renal calculi. No ureteral calculi. No pneumoperitoneum or pneumatosis. No fracture. IMPRESSION: Resolving small bowel obstruction. ACT 112: Negative or not required by law. The above report was generated using voice recognition software. It may contain grammatical, syntax o r spelling errors. Electronically signed by: Jose Juan Long M.D. 04/03/2022 8:12 AM
[2022-04-03] MEDS: ENOXAPARIN INJ 40 MG/0.4 ML SYR SQ SCH (08:36)
[2022-04-03] MEDS ORDERED: DOCUSATE SODIUM 100 MG CAP PO ONE (08:41)
[2022-04-03] MEDS ORDERED: POLYETHYLENE (MIRALAX) 17 GM PACK PO STA (08:41)
--- NOTE | 2022-04-03 08:53 | Surgery Progress Note ---
Date of Service April 03, 2022 Assessment & Plan (1) Small bowel obstruction: (2) Carcinoma of sigmoid colon: Plan: 57 year-old female with history of metastatic colon cancer s/p sigmoid colon resection, colostomy with reversal, chemotherapy and radiation therapy and large midline incisional hernia repair with large mesh at [facility] about 1 year ago who presented to ED with increasing abdominal pain, nausea and vomiting. CT scan showing small bowel obstruction likely due to a pathological retroperitoneal/paraaortic lymph node which abuts and may invade the serosa of the small bowel resulting in the obstruction. 04/03/2022: tolerated clear liquids with no abdominal pain, n/v, bloating passing flatus KUB showing resolving SBO and fecal retention in right colon Plan: Advance to low fiber diet add Miralax and stool softener will need close outpatient follow-up with oncology given CT scan findings for further management Dr. Hart covering this weekend Dr. Latham has seen and examined pt,agrees with above Admission and Anticipated Discharge Date Admission Date: March 31, 2022 Supervising Physician Co-Signing Physician Notes I have seen and examined the patient personally, and agree with the above assessment plan. She continues to pass flatus and tolerate her clear liquid diet. No nausea or vomiting. We will advance to low fiber diet. Dr. Katz will be covering this weekend. Subjective feeling good no abdominal pain no n,v no bloating with clear liquids passing gas but no bowel movement yet denied transfer to [facility] as they likely would not do surgical intervention as her diet was being advanced and clinically improving Physical Exam Constitutional: WD/WN, vitals as above + obese; no acute distress and not ill appearing Neck: normal visual inspection and trachea midline Gastrointestinal (Abdomen): Inspection/Auscultation: abdomen normal to inspection; abdomen not distended Percussion/Palpation: abdomen soft; abdomen nontender, no guarding and abdomen not rigid Skin: no rashes, warm and dry Psychiatric: Orientation: alert and oriented x 3 Results & Data ([facility]) Vital Signs (Past 12 Hours) Vital Signs Temp Pulse Pulse Resp BP Pulse Ox 04/03/22 08:26 36.8 C 82 18 134/82 96 04/03/22 07:50 65 04/03/22 03:31 36.6 C 76 18 118/80 96 04/03/22 01:21 75 04/02/22 22:57 36.4 C L 85 18 142/84 H 96 Laboratory Results 04/03/22 04/03/22 Range/Units 05:41 05:41 WBC 7.48 (4.8-10.8) K/uL RBC 4.13 L (4.2-5.4) M/uL Hgb 12.2 (12.0-16.0) g/dL Hct 37.5 (37-47) % MCV 90.8 (80-100) fL MCH 29.5 (25-34) pg MCHC 32.5 (32-36) g/dL RDW Std Deviation 42.6 (36.4-46.3) fL RDW Coeff of Hamida 12.7 (11.5-14.5) % Plt Count 192 (130-400) K/uL MPV 10.8 H (7.4-10.4) fL Sodium 139 (136-145) mmol/L Potassium 3.7 (3.5-5.1) mmol/L Chloride 105 (98-107) mmol/L Carbon Dioxide 28 (21-32) mmol/L Anion Gap 6 (3-11) BUN 6 (6-23) mg/dl Creatinine 0.76 (0.6-1.2) mg/dl Est Cr Clr Drug Dosing 95.6 ml/min Est GFR ( Amer) 100.9 ml/min Est GFR (Non-Af Amer) 87.1 ml/min BUN/Creatinine Ratio 7.9 L (10-20) Glucose 105 H (70-99(Fasting)) mg/dl Calcium 8.4 L (8.5-10.1) mg/dl Diagnostic Findings KUB HISTORY: Acute generalized abdominal pain with possible obstruction small bowel obstruction COMPARISON: CT abdomen pelvis 03/31/2022 FINDINGS: There is decreased small bowel distention with a few dilated central small bowel loops redemonstrated measuring up to 3.7 cm which has improved from the prior study. There is moderate fecal retention of the right hemicolon. Pelvic basin phleboliths. No renal calculi. No ureteral calculi. No pneumoperitoneum or pneumatosis. No fracture. IMPRESSION: Resolving small bowel obstruction.
[2022-04-03] MEDS ORDERED: SODIUM CHLORIDE 0.9% 500 ML IV ONE (09:09)
[2022-04-03] MEDS ORDERED: POTASSIUM CHLORIDE CRTAB 20 MEQ TABCR PO ONE (09:10)
[2022-04-03 11:55] VITALS: TEMP 98.1; O2SAT 94
--- NOTE | 2022-04-03 15:09 | Hospitalist Progress Note ---
Date of Service April 03, 2022 Assessment & Plan (1) Small bowel obstruction: (2) Carcinoma of sigmoid colon: Plan: As per records: Patient is a 57 yr female with H/O Colon cancer with mets diagnosed in Aug 2016, S/P sigmoid colon resection in Sep 2016 revealing adenocarcinoma, 8/16 lymph nodes were positive for metastatic carcinoma, the tumor penetrated through the visceral peritoneum and the final pathologic stage was [id number]. Complete staging revealed several pulmonary nodules, multiple prominent retroperitoneal lymph nodes and a left common iliac lymph node. Bone scan was negative in October 2016 for metastatic disease. Patient was seen by Dr. Allie Unger and then Dr. Bermudez from medical oncology and received 12 cycles of FOLFOX from 07/22/2018 to completing therapy on 05/20/2019. In October 2018 Vectibix was added. Restaging scans on 06/09/2017 showed stable nonspecific pulmonary nodules in the lung no other evidence of recurrent or metastatic disease. She had been followed by radiation oncology after PET/CT scan on 04/19/2019 revealed resolu tion of FDG avidity of retroperitoneal lymph node, she completed radiation therapy on 08/03/2019. Small Bowel Obstruction H/O Abdominal surgeries: , ligation oviducts 09/01/2016 with exploratory laparotomy of the abdomen due to diverticulosis, enterostomy creation 12/10/2017 with closure of enterostomy with large intestine resection and anastomosis 05/27/2021 mesh implant with abdominal hernia repair --CT ABD:Findings consistent with a small bowel obstruction due to a pathologic retroperitoneal/paraaortic lymph node which has increased in size since PET/CT of April 19, 2019. This node abuts and may invade the serosa of the small bowel and results in a small bowel obstruction. This represents progression of metastatic disease. A few tiny indeterminate peritoneal/omental calcifications. Trace ascites within the right upper quadrant. --NG tube discontinued Continue gentle IV fluids --Pain control --Appreciate Surgery Input --Plan to transfer to [facility] initially, but patient refused as improved symptoms --KUB: Resolving small bowel obstruction. --Encourage ambulation --Had 3 BMs today --Continue bowel regimen as per surgery --Tolerated low fiber diet Prefers to be discharged home today Advised to follow-up with oncology upon discharge as soon as possible. Patient agrees with the plan (3) Morbid obesity: Plan: - BMI of 38.8 Diet and exercise encouraged Abnormal UA Ruled out UTI Rocephin discontinued Urine Cx : Negative Hypokalemia Replace as needed (4) GERD (gastroesophageal reflux disease): Plan: - Uses peptobismol at home Quit taking famotidine and protonix many months ago (As not helping) DVT px: Lovenox SQ CODE STATUS: Full code Admission and Anticipated Discharge Date Admission Date: March 31, 2022 Subjective Patient is seen and examined at bedside Doing well today Had 3 BMs today Denies nausea, abdominal pain, chest pain, shortness of breath Eager to get discharged Tolerated diet Review of Systems Review of Systems: All systems reviewed & are unremarkable except as noted in Subjective Physical Exam Physical Exam: Physical Exam: Vitals signs as noted above General Appearance:Obese, no apparent distress Head: normocephalic, Atraumatic Eyes: normal inspection, EOMI Neck: supple, Trachea midline Respiratory/Chest: Normal breath sounds, CTA, No accessory muscle use Cardiovascular: S1, S2, No murmur Abdomen/GI:Soft, Non tender, bowel sounds present, +Surgical scar Extremities/Musculoskeletal:normal inspection, no edema Neurologic/Psych:AAOX3, grossly no focal neurological deficits Skin: normal color, warm Results & Data Results & Data ([facility]) Vital Signs (Past 12 Hours) Vital Signs Temp Pulse Pulse Resp BP Pulse Ox 04/03/22 11:54 36.7 C 66 20 126/80 94 04/03/22 08:26 36.8 C 82 18 134/82 96 04/03/22 07:50 65 04/03/22 03:31 36.6 C 76 18 118/80 96 Laboratory Results Short CBC 04/03/22 Range/Units 05:41 WBC 7.48 (4.8-10.8) K/uL Hgb 12.2 (12.0-16.0) g/dL Hct 37.5 (37-47) % Plt Count 192 (130-400) K/uL BMP 04/03/22 05:41 Sodium 139 Potassium 3.7 Chloride 105 Carbon Dioxide 28 BUN 6 Creatinine 0.76 Glucose 105 H Calcium 8.4 L
--- NOTE | 2022-04-03 15:25 | Discharge Summary ---
Date of Service April 03, 2022 Admission HPI Per Admitting Provider This is a 57-year-old female with PMHx of colon cancer with mets originally diagnosed in August 2016, s/p sigmoid colon resection in September 2016 revealing adenocarcinoma, 8/16 lymph nodes were positive for metastatic c arcinoma, the tumor penetrated through the visceral peritoneum and the final pathologic stage was [id number]. Complete staging revealed several pulmonary nodules, multiple prominent retroperitoneal lymph nodes and a left common iliac lymph node. Bone scan was negative in October 2016 for metastatic disease. Patient was seen by Dr. Allie Unger and then Dr. Bermudez from medical oncology and received 12 cycles of FOLFOX from 07/22/2018 to completing therapy on 05/20/2019. In October 2018 Vectibix was added. Restaging scans on 06/09/2017 showed stable nonspecific pulmonary nodules in the lung no other evidence of recurrent or metastatic disease. She had been followed by radiation oncology after PET/CT scan on 04/19/2019 revealed resolution of FDG avidity of retroperitoneal lymph node, she completed radiation therapy on 08/03/2019. She Past abdominal surgical hx includes 4 abdominal surgeries: , ligation oviducts - unknown date 09/01/2016 with exploratory laparotomy of the abdomen due to diverticulosis, enterostomy creation 12/10/2017 with closure of enterostomy with large intestine resection and anastomosis 05/27/2021 mesh implant with abdominal hernia repair Other past medical history includes: basal cell carcinoma L lower eyelid, rosacea, hx of tobacco use with 1 ppd x 20 years, quit in 2003. Today the patient presents with abdominal pain to the ER. The patient is a m aintenance worker at the 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 She notes that abdominal pain has been ongoing on and off x3 weeks. She is unable to pinpoint exact location of pain as she states that it moves throughout her abdomen, however currently feels it in the epigastric region above where mesh implant was placed last summer. Alleviating factors for her abdominal pain include movement and lying down, cannot pinpoint an aggravating factor. Intermittently,she has been unable to tolerate p.o. intake with nausea and vomiting, most recently was vomiting 2 days ago. She denies coffee-ground emesis or hematemesis and reports that the food is always partially digested. She has been using Pepto-Bismol multiple times daily and started a Gas-X tablet yesterday to help with bloating. Bowel movements are small, 3-5 times daily is a regular occurrence, her last bowel movement was 2 days ago, she is passing flatus today. Since having bowel surgery, her bowel habits have been unpredictable where she has several small bowel movements for days in a row and then has what she calls a " bowel clean out" without prompting it with any type of medication or enema. She does not take any stool softeners or other laxatives routinely. Patient is unable to tell me if she has been losing weight as she does not weigh herself daily. She denies any night sweats, fevers, chills or swelling of lymph nodes under her armpits or her groin that she is aware of. She lives at home with her who is aware that she is here. Only medication that the patient takes routinely is her losartan 100 mg daily. She is not on any pain medication that would possibly slow her bowels. [facility] Osei was called for transfer from the ER, however due to no beds being available for the next 48 hours, we plan to admit the patient here. General surgery is agreeable to do a consultation. Admission Exam Per Admitting Provider Physical Exam Physical Exam: General: awake, alert, no apparent distress, + obese with BMI of 38.8 Head: Normocephalic, atraumatic ENT: PERRL, EOMI, no pharyngeal exudate, mucous membranes slightly dry Chest: Clear to auscultation, on room air, no adventitious breath sounds Cardiac: Regular rate and rhythm, no murmur, no JVD, normal peripheral pulses, good capillary refill Abdominal: NABS x 4 quadrants, hyperactive, no tinkling, soft, + Distended, nontender to palpation, no rebound or guarding Extremities: Normal inspection, no peripheral edema or erythema, calfs nontender to palpation Psych: Normal mood and affect Neuro: AAO x 3, strength intact bilaterally and rated 5/5, no motor deficits, speech is clear, no peripheral sensory deficits Principal Diagnosis Small bowel obstruction Carcinoma of sigmoid colon Hypokalemia Discharge Data Allergies Allergy/AdvReac Type Severity Reaction Status Date / Time No Known Allergies Allergy Verified 03/31/22 12:57 Consultations 03/31/22 14:44 Consult General Surgery Routine 03/31/22 14:53 ED Decision to Admit Stat 03/31/22 19:19 Consult General Surgery Routine Ordered Studies 03/31/22 11:28 CT abd pelvis IV con only Stat Hospital Course (1) Small bowel obstruction: (2) Carcinoma of sigmoid colon: As per records: Patient is a 57 yr female with H/O Colon cancer with mets diagnosed in Aug 2016, S/P sigmoid colon resection in Sep 2016 revealing adenocarcinoma, 8/16 lymph nodes were positive for metastatic carcinoma, the tumor penetrated through the visceral peritoneum and the final pathologic stage was [id number]. Complete staging revealed several pulmonary nodules, multiple prominent retroperitoneal lymph nodes and a left common iliac lymph node. Bone scan was negative in October 2016 for metastatic disease. Patient was seen by Dr. Allie Unger and then Dr. Bermudez from medical oncology and received 12 cycles of FOLFOX from 07/22/2018 to completing therapy on 05/20/2019. In October 2018 Vectibix was added. Restaging scans on 06/09/2017 showed stable nonspecific pulmonary nodules in the lung no other evidence of recurrent or metastatic disease. She had been followed by radiation oncology after PET/CT scan on 04/19/2019 revealed resolution of FDG avidity of retroperitoneal lymph node, she completed radiation therapy on 08/03/2019. Small Bowel Obstruction H/O Abdominal surgeries: , ligation oviducts 09/01/2016 with exploratory laparotomy of the abdomen due to diverticulosis, enterostomy creation 12/10/2017 with closure of enterostomy with large intestine resection and anastomosis 05/27/2021 mesh implant with abdominal hernia repair --CT ABD:Findings consistent with a small bowel obstruction due to a pathologic retroperitoneal/paraaortic lymph node which has increased in size since PET/CT of April 19, 2019. This node abuts and may invade the serosa of the small bowel and results in a small bowel obstruction. This represents progression of metastatic disease. A few tiny indeterminate peritoneal/omental calcifications. Trace ascites within the right upper quadrant. --NG tube discontinued Continue gentle IV fluids --Pain control --Appreciate Surgery Input --Plan to transfer to [facility] initially, but patient refused as improved symptoms --KUB: Resolving small bowel obstruction. --Encourage ambulation --Had 3 BMs today --Continue bowel regimen as per surgery --Tolerated low fiber diet Prefers to be discharged home today Advised to follow-up with oncology upon discharge as soon as possible. Patient agrees with the plan (3) Morbid obesity: - BMI of 38.8 Diet and exercise encouraged Abnormal UA Ruled out UTI Rocephin discontinued Urine Cx : Negative Hypokalemia Replace as needed (4) GERD (gastroesophageal reflux disease): - Uses peptobismol at home Quit taking famotidine and protonix many months ago (As not helping) DVT px: Lovenox SQ CODE STATUS: Full code Total Time Total Time Spent Total Time Spent (In Minutes): 44 minutes Discharge Plan Discharge Items Patient Disposition: Home - Self-Care Reason For Visit: SBO Discharge Diagnosis: Small bowel obstruction Carcinoma of sigmoid colon Hypokalemia Activity: Per Instructions section Exercise/Sports: Wait until after follow-up appointment Non-emergency contact: Primary Care Provider, Surgeon and Oncologist Call non-emergency contact if: you have any medication questions, your symptoms worsen, your pain is concerning for you and you have a fever Follow-up/Referrals: Marce Holder, [Primary Care Provider] - Diet: Low Fiber Addtl Attending Provider Instructions: Follow-up with your primary care physician in 1 week. Please call for appointment Follow-up with your oncologist in 1 week for further management of metastatic disease as advised. Please call for appointment Seek immediate medical attention if your symptoms reoccur or worsen Please take all medications as instructed on discharge list below. Please call if you have any questions or problems. You can reach a [facility] hospitalist on duty at [facility] 24 hours a day by calling [phone] Pending Studies at Discharge: Yes Studies:: Urine Culture Stand-Alone Forms: My [facility], Smoking Cessation Medications and DC Order Prescriptions: New docusate sodium [Colace] 100 mg capsule 100 mg PO BID PRN (Reason: constipation) Qty: 30 RF: 0 polyethylene glycol 3350 [Miralax] 17 gram powder in packet 17 g PO DAILY PRN (Reason: constipation) Qty: 30 RF: 0 Continued losartan 100 mg tablet 100 mg PO DAILY RF: 0 Discharge Orders: Discharge Order (Routine); Ordered 04/03/22 Ordered By: Aashish Gomes Admission Data Admit Date/Time: 03/31/22 17:47 Attending Provider: Aashish Gomes Admit Provider: Spring Acuna Primary Care Provider: Marce Holder Other Providers: Jessee Latham ; Spring Acuna
[2022-04-03 15:27] VITALS: BP 130/77
[2022-04-03 15:32] VITALS: PULSE 79
== END 2022-04-03 15:53 | disposition home or self-care (01) | DRG 389 ==
LOC: ED 11:09 → SUATTDRO 17:47 → EDINP 17:47 → 2N 18:35